=== PATIENT | male | born 1955 | race Caucasian/White ===

== ENCOUNTER 2024-08-28 17:59 | Outpatient (CLI) | payer MEDICARE, SELFPAY | END 2024-08-28 18:00 | disposition home or self-care (01) | LOC: AMB 08-31 13:29 | PROVIDERS: Visit Provider Emergency Medicine | DX: R55 Syncope and collapse (principal); I49.9 Cardiac arrhythmia, unspecified; F10.129 Alcohol abuse with intoxication, unspecified | CPT/HCPCS: A0425; A0427 ==

== ENCOUNTER 2024-08-28 18:33 | Emergency (ER) | payer MEDICARE, SELFPAY ==
[2024-08-28] VITALS (7 sets, daily range): BP systolic 110–127; BP diastolic 79–82; PULSE 50–70; RESP 11–18; TEMP 36.2; O2SAT 93–98; BMI 24.3
--- NOTE | 2024-08-28 18:46 | ED.GENADULT ---
HPI - General Adult General Date Seen: 08/28/24 Chief complaint: Syncope/Fainted Stated complaint: Heart issues Time Seen by Provider: 08/28/24 18:46 History of Present Illness HPI narrative: 68 YO M spread to the ER today by EMS after he blacked out 3 times at the table while being at the local [employer]. EMS reports that they were called because he had fainted a couple of times. When they initially checked his vitals he had bradycardia with heart rate in the 50s and hypotension with a systolic blood pressure in the 70s. He was alert and oriented for them. EMS says that the patient was a little bit irritated about being brought in because he has had fainting spells in the past and that, ?they never find anything. ?. EMS also reports that he has a history of coronary disease and recently had some new stents placed by Cardiology at [place]. We do not have records for this patient in the [place] system. According to records from the [facility] link he has a history of hypertension, coronary disease with NSTEMI, atrial fibrillation, high cholesterol, hypothyroidism, open-angle glaucoma, cataracts, sleep apnea, tobacco use disorder. Meds currently include apixaban, atorvastatin, Zetia, levothyroxine, metoprolol 25 mg sustained release, Xalatan eyedrops. Nitroglycerin tablets p.r.n.. According to cardiology note dated 07/03/2024... Jorgito Lechuga is a very pleasant 68 y.o. male with a history of paroxysmal atrial fibrillation, CAD with a prior non-STEMI s/p PCI to the RCA in June 2023 returns in annual follow-up. ? Patient brings in a record of blood work from his primary care doctor's office. This shows an LDL of 117. He has been compliant with his atorvastatin 40 mg daily. ? He is reporting noncardiac chest pain on the left side of his chest when he lays down. He is having no anginal symptoms. He reports no significant shortness of breath or palpitations. Impression: 1. CAD s/p PCI to the RCA in June 2023 following a non-STEMI. Clinically asymptomatic. 2. Dyslipidemia. LDL has risen to 117. Has been compliant with atorvastatin 40 mg daily. Has previously not tolerated a milligrams of atorvastatin. 3. Paroxysmal atrial fibrillation. In sinus on exam today. ? Plan: 1. Continue Eliquis and atorvastatin unchanged. 2. Add Zetia 10 mg daily to target LDL goal less than 70. 3. Have asked the patient to bring in his blood work from primary care to review next year. 4. Return to clinic in 1 year or sooner if needed. Per cardiology note from 11/08/2023.... 68 y.o. male with a history of CAD s/p PCI to the RCA and circumflex in June this year for who presented with chest pain, non-STEMI and PAF. ? Patient reports low blood pressures since he was seen last. He saw Lea Escalera in July and his losartan was cut in half. This did help his blood pressures but they continue to run low. He had no recurrent anginal symptoms. He was having GI issues which resolved when his atorvastatin was decreased from 80 to 40 mg daily. He and his were out celebrating independence today. They had gone to the [employer] in the [place]. 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 This afternoon he reports he was drinking more than normal. He says he had probably 4 beers and 2 glasses of wine. His was also drinking similarly. They were sitting at a table when she began to complain of symptoms, possibly a heart attack. Then the patient abruptly passed out and he apparently slumped forward and landed with his face on the table. He passed out a couple more time sitting at the table. There was no witnessed seizure activity. The patient does not recall any antecedent symptoms to the syncope. No chest pain. No headache. No dyspnea. No palpitations. No antecedent nausea or blurry vision. Initial blood pressure per EMS was 70 but came up to 100 after his to stab wishing IV and starting a 500 mL bolus Patient recalls that he has had a similar episode several years ago and apparently had a workup without any cause found. He also has a history of AFib and is on Eliquis for stroke prophylaxis. He has a history of coronary disease and had a stent about 15 months ago done at the [facility]. He does not have any known valvular disease. He is little bit frustrated about being transported here to the ER because he says when this happened before ?they did not find any thing. ? Related Data Home Medications ?Medication ?Instructions ?Recorded ?Confirmed apixaban 5 mg tablet (Eliquis) 5 mg PO BID 08/28/24 08/28/24 atorvastatin 40 mg tablet (Lipitor) 40 mg PO DAILY 08/28/24 08/28/24 clopidogrel 75 mg tablet (Plavix) 75 mg PO DAILY 08/28/24 08/28/24 metoprolol succinate 25 mg 25 mg PO DAILY 08/28/24 08/28/24 tablet,extended release 24 hr (Toprol XL) Allergies Allergy/AdvReac Type Severity Reaction Status Date / Time Penicillins Allergy Unknown Verified 08/28/24 18:41 Exam Narrative: Exam Narrative: Constitutional: Appears well-developed and well-nourished. Alert. Conversant. Non toxic. HENT: Head: Atraumatic. Nose: Nose normal. Mouth/Throat: Oral mucosa is clear and moist. no trismus. Pharynx normal. Tonsils symmetric. No tonsillar enlargement, erythema, or exudate. Eyes: Conjunctivae normal. EOM normal. Pupils equal, round, and reactive to light. No scleral icterus. Neck: Normal range of motion. Neck supple. No tracheal deviation present. No JVD Cardiovascular: Bradycardic, heart rate 58 on the monitor ranges up to 67. Heart rate does appropriately rise when he leans forward for lung exam., regular rhythm. No gallop. No friction rub. No murmur heard. Symmetric radial artery pulses Pulmonary/Chest: Effort normal. No stridor. No respiratory distress. No wheezes. No rales. No rhonchi . No tenderness. Abdominal: Soft. Bowel sounds normal. No distension. No mass. No tenderness. No rebound. No guarding. Musculoskeletal: RUE: Normal range of motion. No tenderness. No deformity LUE: Normal range of motion. No tenderness. No deformity RLE: Normal range of motion. No edema. No tenderness. No deformity LLE: Normal range of motion. No edema. No tenderness. No deformity Lymph: No cervical adenopathy. Endocrine: No thyromegaly Neurological: Alert and oriented to person, place, and time. Normal strength. CN II-VII intact. No sensory deficit. GCS eye subscore is 4. GCS verbal subscore is 5. GCS motor subscore is 6. Normal coordination Skin: Skin is warm and dry. No rash noted. No pallor. Normal capillary refill. Psychiatric: Normal mood. Normal affect. He is calm, polite, conversant. Speech is not slurred. No signs of alcohol intoxication. Const: Vital Signs, click to edit/add: Vital Signs - 24 hr 08/28/24 18:33 08/28/24 18:46 08/28/24 19:00 Temperature 97.1 F L Pulse Rate 55 L 63 Pulse Rate [Pulse Oximeter] 50 L Respiratory Rate 12 13 14 Blood Pressure Blood Pressure [Ri ght Upper Arm] 110/80 Pulse Oximetry 98 97 97 Oxygen Delivery Me thod Room Air 08/28/24 19:02 08/28/24 19:15 08/28/24 19:30 Temperature Pulse Rate 63 60 62 Pulse Rate [Pulse Oximeter] Respiratory Rate 18 15 Blood Pressure 127/82 Blood Pressure [Ri ght Upper Arm] Pulse Oximetry 98 93 93 Oxygen Delivery Me thod 08/28/24 19:32 Temperature Pulse Rate 70 Pulse Rate [Pulse Oximeter] Respiratory Rate 11 L Blood Pressure 122/79 Blood Pressure [Ri ght Upper Arm] Pulse Oximetry 94 Oxygen Delivery Me thod Course Vital Signs Vital signs: Initial Vital Signs Temperature 97.1 F L 08/28/24 18:33 Temperature Source Temporal Artery Scan 08/28/24 18:33 Pulse Rate 50 L 08/28/24 18:33 Pulse Rhythm Regular 08/28/24 18:33 Respiratory Rate 12 08/28/24 18:33 Blood Pressure 110/80 08/28/24 18:33 Blood Pressure Mean 90 08/28/24 18:33 Blood Pressure Position Supine 08/28/24 18:33 Pulse Oximetry 98 08/28/24 18:33 Oxygen Delivery Method Room Air 08/28/24 18:33 Vital Signs Temperature 97.1 F L 08/28/24 18:33 Pulse Rate 50 L 08/28/24 18:33 Respiratory Rate 12 08/28/24 18:33 Blood Pressure 110/80 08/28/24 18:33 Pulse Oximetry 98 08/28/24 18:33 Oxygen Delivery Method Room Air 08/28/24 18:33 Temperature 97.1 F L 08/28/24 18:33 Pulse Rate 70 08/28/24 19:32 Respiratory Rate 11 L 08/28/24 19:32 Blood Pressure 122/79 08/28/24 19:32 Pulse Oximetry 94 08/28/24 19:32 Oxygen Delivery Method Room Air 08/28/24 18:33 Medical Decision Making MDM Narrative Medical decision making narrative: After initial evaluation patient's arrived with symptoms. He actually left his ER room (room 8) in walked in the hallway to go see her in her room (room 3). After her workup (by my partner) she was ready for discharge. Patient was subsequently requesting discharge. I had initially ordered labs to look for electrolyte disturbance, thyroid abnormality, acute coronary syndrome to explain this patient's episode of bradycardia and hypotension. Although he initially verbally agreed he subsequently changed his mind was requesting discharge home with his . I met with the patient again. We had a open and honest discussion together. His was present as well are 2 of his friends. Expressed my concern that he had substantially abnormal vital signs prior to arrival with significant bradycardia and hypotension. Etiology is unclear but I am very suspicious that this could have been a Arron dysrhythmia or complete heart block or sick sinus syndrome. My recommendation is that he stay here in the ER for cardiac monitoring and lab workup to look for potential causes of this. He understands the potential risk of cardiac arrhythmias, including . Although he had been drinking some alcohol earlier today, he is clinically sober, steady on his feet. After our discussion he understands my concerns, workup proposed, and next steps. He understands the risks of discharging from the ER at this time. He has medical decision-making capacity. He is requesting discharge and does not want any further workup. Therefore he will be discharged from the ER. If he is not can have further workup here, request that he call his doctor and arrange some outpatient workup such as a Zio patch and laboratory workup in the clinic setting this is possible. He is invited/instructed to return to the ER right away if he changes mind or if he has any recurrent episodes of dizziness or other symptoms. His family were present for discussion. His shares my concern and his friends, I think , support my recommendation for admission. However the patient is choosing discharge. ECG Data Attestation: I personally reviewed and interpreted this ECG as follows: Interpretation: Sinus Bradycardia Rate: 58 AL: 186 QRS axis: Normal axis ST segment/T wave: No ST segment elevation or depression QTc: 414 Discharge Plan Discharge Clinical Impression: Bradycardia, Acute hypotension Patient Disposition: Home, Self-Care Condition: Stable Instructions: Bradycardia (ED) Additional Instructions: As we discussed, you are choosing to leave the ER without any further workup. It is very important for you to follow-up with your regular doctor or it support analyst next week for a recheck. Ask your doctor to arrange an outpatient heart monitor so we can see if you are having episodes where your heart rate drops low. If you have any more episodes of dizziness or fainting, call 911 and return to your nearest ER right away. Please avoid alcohol consumption until you are cleared to drink alcohol by your it support analyst. Continue on your regular medications for now. I am sorry are not satisfied with our workup here in the ER but I wish you the best of luck. Prescriptions: No Action Eliquis 5 mg tablet 5 mg PO BID metoprolol succinate [Toprol XL] 25 mg tablet extended release 24 hr 25 mg PO DAILY clopidogrel [Plavix] 75 mg tablet 75 mg PO DAILY atorvastatin [Lipitor] 40 mg tablet 40 mg PO DAILY Follow Up/Referrals: Provider,Not a Local [Primary Care Provider, Family Practice] Stand Alone Forms: [employer] Info Instructions
--- OUTSIDE RECORDS SUMMARY | 2024-08-28 20:32 | XMS_ITS | Patient Health Record ---
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 Results obtained with different assay methods or kits cannot be used interchangeably. This test is intended for initial prostate cancer screening. PSA values exceeding the age-specific limits are suspicious for prostate disease, but additional testing, such as prostate biopsy, is needed to diagnose prostate pathology. The [employer] recommends annual examination with digital rectal examination and serum PSA beginning at age 50 and for men with a life expectancy of at least 10 years after detection of prostate cancer. For men in high-risk groups, such as Americans or men with a first-degree relative diagnosed at a younger age, testing should begin at a younger age. It is generally recommended that information be provided to patients about the benefits and limitations of testing and treatment so they can make informed decisions. PERFORMED BY: [facility], [address] [address] [place] [id number],[facility] [id number] . Lipid Luna Reviewed date:06/03/2024 12:51:21 PM Interpretation:[id number] Performing Lab: Notes/Report: Cholesterol Desirable: < 200 mg/dL Borderline High: 200 - 239 mg/dL High: >= 240 mg/dL Triglycerides Normal: < 150 mg/dL Borderline High: 150 - 199 mg/dL High: 200-499 mg/dL Very High: >= 500 mg/dL Direct Measure HDL Female: >= 50 mg/dL Male: >= 40 mg/dL LDL Cholesterol Desirable: < 100 mg/dL Above Desirable: 100 - 129 mg/dL Borderline High: 130 - 159 mg/dL High: 160 - 189 mg/dL Very High: >= 190 mg/dL Non HDL Cholesterol Desirable: < 130 mg/dL Above Desirable: 130 - 159 mg/dL Borderline High: 160 - 189 mg/dL High: 190 - 219 mg/dL Very High: >= 220 mg/dL PERFORMED BY: [facility], [place] [address] [place] [id number],[facility] [id number] . Cholesterol 176 <200 mg/dL Triglycerides 92 <150 mg/dL Direct Measure HDL 41 >=40 mg/dL LDL Cholesterol Calculated 117 <100 mg/dL Non HDL Cholesterol 135 <130 mg/dL Patient Fasting > 8hrs? Yes Basic Metabolic Profile Reviewed date:06/03/2024 12:51:21 PM Interpretation:Cr 0.87 GFR >90 Performing Lab: Notes/Report: Sodium 141 135-145 mmol/L Potassium 3.8 3.4-5.3 mmol/L Chloride 105 98-107 mmol/L Carbon Dioxide (CO2) 22 22-29 mmol/L Anion Gap 14 7-15 mmol/L Urea Nitrogen 15.5 8.0-23.0 mg/dL Creatinine 0.87 0.67-1.17 mg/dL GFR Estimate >90 >60 mL/min/1.73m2 eGFR calcu lated using 2020 CKD-EPI equation. Calcium 9.4 8.8-10.4 mg/dL Glucose 117 70-99 mg/dL PERFORMED BY: [facility], [address] [address] [place] [id number],[facility] [id number] . Patient Fasting > 8hrs? Yes TSH Reviewed date:06/03/2024 12:51:21 PM Interpretation:4.76 Performing Lab: Notes/Report: TSH 4.76 0.30-4.20 uIU/mL PERFORMED BY: [facility], [place] [address] [place] [id number],[facility] [id number] . Reason For Referral No Information Medications Medication SIG (Take, Route, Frequency, Duration) Notes Start Date End Date Status Atorvastatin Calcium 40 MG 1 tablet Oral ly Once a day; Duration: 90 days 07/19/2023 Active Levothyroxine Sodium 75 MCG 1 tab Orally Once a day; Duration: 90 days Active Ketoconazole 2 % apply topically bid Unknown Metoprolol Succinate ER 25 MG 1 tablet Orally Once a day; Duration: 90 days 07/19/2023 Active Nitroglycerin 0.4 MG 1 tablet as needed Sublingual For chest pain place 1 tablet under the tongue every 5 minutes for 3 doses. If symptoms persist 5 minutes after 1st dose call 911 07/19/2023 Active Losartan Potassium 25 MG 1 tablet Orally Once a day; Duration: 90 days 07/19/2023 Not-Takin g Latanoprost 0.005 % 1 drop into both eye s in the evening Ophthalmic Once a day Active Apixaban 5 MG 1 tablet Orally Twic e a day; Duration: 90 days 07/19/2023 Active Immunizations Vaccine Route Administration Date Status Comme nts Covid Vaccine (Pfizer) Unknown 06/18/2020 Administered Covid Vaccine (Pfizer) Unknown 07/07/2020 Administered Covid Vaccine Bivalent Booster (Moderna) Unknown 12/07/2021 Administered Covid Vaccine Booster (Moderna) Unknown 07/13/2021 Administered Covid-19 (Spikevax-MOD 23-24) Unknown 01/03/2023 Administered Influenza 3 Years and above WITH Preservative Unknown 12/27/2011 Administered Influenza 3 Years and above WITH Preservative Unknown 11/17/2013 Administered Influenza 6 months and older Preservative Free Unknown 01/25/2017 Administered Influenza 6 months and older Preservative Free Unknown 02/07/2018 Administered Influenza 6 months and older WITH Preservative Unknown 11/17/2014 Administered Influenza Fluzone High Dose Unknown 12/07/2021 Administered Influenza Fluzone High Dose Unknown 01/03/2023 Administered Tdap (Boostrix 7 years & older ) Unknown 12/27/2011 Administered Zoster Vaccine (Shingrix) IM Intramuscular 10/27/2021 Admi nistered Zoster Vaccine (Shingrix) IM Intramuscular 01/22/2022 Admi nistered Social History Tobacco Use: Social History Observation Description Date Details (start date - stop date) Former Smoker NA - NA Sex Assigned At : Social History Observation Description Sex Assigned At Male Alcohol Screen Question Answer Notes Did you have a drink contain ing alcohol in the past year? Yes How often did you have a dri nk containing alcohol in the past year? Two to four times a month (2 points) How many drinks did you have on a typical day when you were drinking in the past year? 1 or 2 (0 points) How often did you have six o r more drinks on one occasion in the past year? Less than monthly (1 point) Points 3 Interpretation Negative Tobacco Control (Standard) Question Answer Notes Tobacco use: Former smoker Problems Problem Type SNOMED Code ICD Code Onset Dates Problem Status W/U Status Risk Notes Problem Hypothyroidism (67911995) Hypothyroidism (acquired) (E03.9) Active confirmed Problem Essential hypertension (25483017) Essential hypertension (I10) Active confirmed Problem Acute non-ST segment elevation myocardial infarction (444263535) NSTEMI (non-ST elevated myocardial infarction) (I21.4) Active confirmed Problem Old myocardial infarction (3717669) History of non-ST elevation myocardial infarction (NSTEMI) (I25.2) Active confirmed Problem Atrial fibrillation (93392685) Atrial fibrillation, unspecified type (I48.91) Active confirmed Problem Hyperlipidaemia (91953744) Hyperlipidemia, unspecified hyperlipidemia type (E78.5) Active confirmed Problem Poor stream of urine (finding) (518815282) Decreased urine stream (R39.198) Active confirmed Vital Signs Blood pressure diastolic 108 mm Hg 06/02/2024 Oximetry 96 06/02/2024 Height 68 in 06/02/2024 Blood pressure systolic 162 mm Hg 06/02/2024 Weight 158.8 lbs 06/02/2024 BMI 24.14 kg/m2 06/02/2024 Procedures Procedure Date Ordered Date Performed Result Body Sit e Functional Screen Assessment 06/02/2024 06/02/2024 N/A Encounters Encounter Location Date Provider Diagnosis [facility] [address] [facility], [facility]. [address] [place], [place] [id number] 02/28/[address] [place] [id number] 06/03/[address] [place] [id number] 06/03/[address] [place] [id number] 06/02/2024 Amy Hernandez Encounter for [facility] annual wellness exam Z00.00 ; History of non-ST elevation myocardial infarction (NSTEMI) I25.2 ; Atrial fibrillation, unspecified type I48.91 ; Hyperlipidemia, unspecified hyperlipidemia type E78.5 ; Hypothyroidism (acquired) E03.9 ; Screening for diabetes mellitus Z13.1 ; Screening for prostate cancer Z12.5 and Vertigo R42 Assessments Encounter Date Diagnosis (ICD Code) Assessment Notes Treatment Notes Treatment Clinical Notes Section Notes 06/02/2024 Encounter for Medicare annual wellness exam (ICD-10 - Z00.00) Jorgito is a 68 year old man presenting for MAWV. Functional assessment reviewed. Discussed recommended vaccinations. Assessment and Plan: HypertensionPatient's blood pressure was elevated during the visit. Home blood pressure monitoring has not been performed. Further evaluation is needed to determine if this is a persistent issue or an isolated occurrence. - Plan: - Recheck blood pressure at home - Clinic to follow up via phone call in a few days to review home blood pressure readings - Blood tests ordered to assess kidney function Cardiovascular disease (history of STEMI, atrial fibrillation)Patient has a history of heart attack, STEMI, and atrial fibrillation. Currently on apixaban, atorvastatin, metoprolol, and nitroglycerin. No reported chest pain or difficulty breathing. Cardiovascular examination performed during visit. - Plan: - Continue current medications: apixaban (Eliquis), atorvastatin, metoprolol, nitroglycerin tablets - Cholesterol levels to be checked - Cardiology follow-up to continue HypothyroidismPatient currently on levothyroxine 75 mcg. Thyroid function may not be optimally controlled, as evidenced by patient's report of brain fog. - Plan: - Refill levothyroxine prescription, send to [facility] - Check thyroid function tests - Adjust levothyroxine dose if TSH is abnormal - Recheck thyroid function in 2 months if dose adjustment needed Recent vertigo and fallPatient reports experiencing vertigo for 2 months following a fall during winter. Subsequently had flu and hit head, causing recurrence of vertigo. No current symptoms reported, but may require further evaluation if persistent. - Plan: - Consider physical therapy referral if vertigo persists Preventive careMedicare annual wellness visit initiated. Patient is due for several preventive measures and screenings. - Plan: - Order PSA test - Recommend Tdap vaccine at pharmacy - Consider pneumonia vaccine - Blood tests ordered: cholesterol, blood sugar - Colon cancer screening up to date (Katarzyna last year) 06/02/2024 History of non-ST elevation myocardial infarction (NSTEMI) (ICD-10 - I25.2) 06/02/2024 Atrial fibrillation, unspecified type (ICD-10 - I48.91) 06/02/2024 Hyperlipidemia, unspecified hyperlipidemia type (ICD-10 - E78.5) 06/02/2024 Hypothyroidism (acquired) (ICD-10 - E03.9) 06/02/2024 Screening for diabetes mellitus (ICD-10 - Z13.1) 06/02/2024 Screening for prostate cancer (ICD-10 - Z12.5) 06/02/2024 Vertigo (ICD-10 - R42) 06/02/2024 Other Current providers and suppliers list as provided by the patient is scanned into the patient document section of the EMR. Personalized health plan reviewed and given to patient. Appropriate reccomendations, orders and referrals made. Plan Of Treatment No Information Insurance Providers Payer Name Payer Address Payer Phone Subscriber Number Group Number Insured Name Patient Relationship to Insured Coverage Start Date Coverage End Date MEDICARE NGS [address] [place] [phone] [id number] Jorgito Lechuga Self - patient is the insured 2 [employer] Senior Gold Supplement [address] [address] [place] [address] [id number] Jorgito Lechuga Self - patient is the insured 2 Medical (General) History Medical History History ICD Code DOFV: Tetanus: Lipid Luna: PSA: Colon cance r screening: Surgical History Surgery Date(Month/Year) Kidney stones Diastasis Recti Hospitalization History Reason Date(Month/Year) NSTEMI,A-Fib w/RVR 07/17/2023
== END 2024-08-28 20:50 | disposition home or self-care (01) ==
PROVIDERS: Emergency Provider Emergency Medicine
DX: R00.1 Bradycardia, unspecified (principal); I95.9 Hypotension, unspecified
CPT/HCPCS: 80048; 84443; 84484; 85025; 93005; 99284